=== PATIENT | female | born 1995 | race Hispanic/Latino ===

== ENCOUNTER 2019-07-30 08:12 | Outpatient (CLI) | payer MEDICAID ==
--- NOTE | 2019-07-30 11:53 | ULT ---
PELVIC ULTRASOUND: Date: 07/30/19 HISTORY: Pelvic pain. Irregular menses. FINDINGS: Real-time imaging of the pelvis was obtained transabdominally, as well as with an endovaginal probe. This shows the uterus measuring 3.7 x 4.7 x 6.9 cm. Endometrium is thickened and somewhat heterogeneo us, measuring in the 8-9 mm range. The right and left adnexa are normal in appearance. DOPPLER EVALUATION WITH SPECTRAL ANALYSIS: Normal flow shown to adnexal regions. IMPRESSION: Thickened endometrium, which could be related to stage of menstrual cycle. Otherwise unremarkable exa m. POS: [facility]
== END 2019-07-30 08:13 | disposition home or self-care (01) ==
LOC: SCSULT 08:12
PROVIDERS: ATTEND Advanced Practice Midwife
DX: Z01.419 Encounter for gynecological examination (general) (routine) without abnormal findings (principal); R93.89 Abnormal findings on diagnostic imaging of other specified body structures
CPT/HCPCS: 76856